=== PATIENT | male | born 2000 | race African-American/Black ===

== ENCOUNTER 2020-10-09 04:51 | Emergency (ER) | payer OTHER, SELFPAY ==
[2020-10-09 04:53] VITALS: BP 140/85; PULSE 117; RESP 97; TEMP 36.4; O2SAT 97; BMI 25.0
[2020-10-09 04:58] VITALS: BP 135/87; PULSE 107; RESP 16; TEMP 37.6; O2SAT 97
[2020-10-09] MEDS: Ketorolac 30 MG/ML Syringe IM (05:31)
--- NOTE | 2020-10-09 05:43 | EX.ED.DYSGE1 ---
HPI History of Present Illness Chief Complaint: General Illness Informant: patient Onset/Context/Timing Onset: Days (3-4) Context: Gradual Onset Timing: Continuous and Waxes and wanes Quality: achy Location: head, all over Current Severity: Moderate Maximum Severity: Moderate Worsened by: nothing Relieved by: nothing. tried no meds. Associated Symptoms Associated Symptoms: cough, diarrhea, myalgias, fevers/chills Narrative Narrative: Patient has not been vaccinated against Covid. He has healthy 20-year-old. No known contact with anyone with Covid that he knows of. He was seen at urgent care yesterday and had a PCR Covid test, it is not back yet, he presents here at 4 AM because of persistent headache although he has not taken anything for it, and because urgent care told him to come to the ER for the headache. PFSH PFSH no medical history Home Medications NK 10/09/20 [History Last Taken Unknown] Allergy/AdvReac Type Severity Reaction Status Date / Time No Known Allergies Allergy Verified 10/09/20 04:52 no surgical history Social History Smoking Status: Current every day smoker tobacco type: e-cigarettes ROS ROS ED Constitutional Constitutional ED: Reports as per HPI, body ache(s), chills, fever(s) and malaise Eyes Eyes: Denies change in vision or diplopia ENT ENT ED: Denies loss taste/smell, rhinorrhea or sore throat Cardiovascular Cardiovascular: Denies chest pain or palpitations Respiratory/Chest Respiratory/Chest: Reports cough; Denies dyspnea Gastrointestinal Gastrointestinal: Reports diarrhea; Denies abdominal pain, nausea or vomiting Genitourinary Genitourinary ED: Denies dysuria or hematuria Musculoskeletal Musculoskeletal: Reports myalgias; Denies back pain or neck pain Integumentary Denies abscess or rash Neurologic Neurologic: Reports headache(s); Denies paresthesias or weakness Psychiatric Psychiatric: Denies anxiety or suicidal thoughts EXAM Physical Exam Const Vital Signs: 10/09/20 04:53 10/09/20 04:58 10/09/20 04:59 Temperature 97.5 F L 99.7 F H Temperature Source Temporal Oral Pulse Rate 117 H 107 H Respiratory Rate 97 H 16 Respiratory Effort Normal Respiratory Pattern Normal Blood Pressure 140/85 H 135/87 H Blood Pressure Mean 103 103 Pulse Ox 97 97 Oxygen Delivery Method Room Air Room Air Positive well nourished and well developed Constitutional Narrative: Well-appearing. Conversive in full sentences. General Appearance ED: well developed and NAD HEENT Reports moist mucous membranes normocephalic and atraumatic Eyes PERRL and EOMs intact bilaterally Neck full ROM, no lymphadenopathy and supple Resp normal respiratory effort and clear to auscultation bilaterally Cardio regular rate, regular rhythm and no murmurs Cardio Narrative: Mild resting tachycardia GI non-tender and non-distended Auscultation: normoactive bowel sounds Palpation: soft Back/Spine no CVA tenderness General Back: other FROM Extremity normal to inspection General Extremety ED: Negative for edema, pulses abnormal or tenderness General Extremity: Negative for edema or pulses abnormal Neuro oriented x3, CN's II-XII intact bilaterally and no sensory deficits noted Sensorium / Orientation: awake and alert Motor Exam: strength 5/5 throughout Skin no rashes or lesions noted and no wounds MDM MDM MDM Narrative Medical decision making narrative: Patient has a low-grade fever at the time he has mild tachycardia here which is probably related to it. I offered to do a rapid Covid for him here so that he knows if it returns positive, he initially wanted it, but then refused, but was amenable to a shot of Toradol for his symptoms. I advised him to isolate as if he has Covid, given that we have seen high incidence recently of nonvaccinated people. He is not hypoxic and meets no criteria for outpatient monoclonal antibody infusion. Discharge Plan Triage Chief Complaint: General Illness ED Provider: Jaime Tran Dx/Rx/DC Orders Clinical Impression: Suspected COVID-19 virus infection Instructions: Coronavirus Disease 2019 (COVID-19): Caring for Yourself or Others Prescriptions: No Action NK RF: 0 Primary Care Provider: Care Physician,No Primary Referrals: Effie Sabillon [NON-STAFF] - As Needed Care Physician,No Primary [Primary Care Provider] - Activity Restrictions/Additional Instructions: Isolate yourself away from others for at least 10 days after the beginning of your fevesr Disposition Disposition: Home, Self Care
== END 2020-10-09 05:49 | disposition home or self-care (01) ==
PROVIDERS: Emergency Provider Emergency Medicine
DX: R51.9 Headache, unspecified (principal); R50.9 Fever, unspecified; R00.0 Tachycardia, unspecified; F17.290 Nicotine dependence, other tobacco product, uncomplicated
CPT/HCPCS: 96372; 99282

== ENCOUNTER 2020-10-09 20:14 | Emergency (ER) | payer OTHER, SELFPAY ==
[2020-10-09 04:53] VITALS: BMI 25.0
[2020-10-09 20:14] VITALS: BP 120/71; PULSE 98; RESP 18; TEMP 37.2; O2SAT 96; BMI 26.4
--- NOTE | 2020-10-09 21:06 | EDS_ITS ---
HPI History of Present Illness Chief Complaint: Headache Informant: patient and spouse/S.O. Narrative Narrative: 20-year-old male presents the emergency room with 4 days of fever, headache, neck pain, cough, sore throat, diarrhea, nausea and vomiting, myalgias, and rhinorrhea. His significant other states that she was ill a few days before him and had similar symptoms and antibiotic helped her feel better. She tested negative for Covid. Patient states that his Covid test is currently pending that he got from an urgent care. He notes his cough is productive of sputum particularly in the shower. The patient vapes. PFSH PFSH no medical history Home Medications doxycycline monohydrate 100 mg PO BID #20 capsule 10/09/20 [Rx Last Taken Unknown] Allergy/AdvReac Type Severity Reaction Status Date / Time No Known Allergies Allergy Verified 10/09/20 20:14 no surgical history Social History (Updated 10/09/20 @ 21:[address] Teddy Ramirez, DO) Smoking Status: Current every day smoker tobacco type: e-cigarettes substance use type: does not use ROS ROS ED Constitutional Constitutional ED: Denies chills or weight loss Eyes Eyes: Denies change in vision or diplopia ENT ENT ED: Denies ear pain, rhinorrhea or sore throat Cardiovascular Cardiovascular: Denies chest pain, orthopnea, palpitations or racing heartbeat Respiratory/Chest Respiratory/Chest: Denies cough, dyspnea or orthopnea Gastrointestinal Gastrointestinal: Denies abdominal pain, diarrhea, nausea or vomiting Genitourinary Genitourinary ED: Denies dysuria, hematuria or urinary frequency Musculoskeletal Musculoskeletal: Denies arthralgias or myalgias Integumentary Denies abscess or rash Neurologic Neurologic: Denies headache(s) or weakness Psychiatric Psychiatric: Denies anxiety, depression, suicidal ideation or suicidal thoughts Endocrine Endocrinology: Denies polydipsia, polyphagia or polyuria Allergic/Immunologic Allergic/Immunologic ED: Denies mouth swelling, tongue swelling or urticaria EXAM Physical Exam Const Vital Signs: 10/09/20 20:14 Temperature 98.9 F Temperature Source Temporal Pulse Rate 98 Respiratory Rate 18 Blood Pressure 120/71 Blood Pressure Mean 87 Pulse Ox 96 Oxygen Delivery Method Room Air Positive well nourished and well developed General Appearance ED: well developed HEENT Reports normocephalic, head/scalp atraumatic and moist mucous membranes Eyes PERRL and EOMs intact bilaterally Neck no lymphadenopathy, supple and no JVD Resp normal respiratory effort Auscultation: rhonchi Cardio regular rate, regular rhythm and no murmurs GI normal to inspection, nondistended, normoactive bowel sounds and non-tender Palpation: soft Back/Spine no CVA tenderness and normal ROM Extremity normal to inspection General Extremety ED: Negative for edema General Extremity: Negative for edema Neuro oriented x3 and CN's II-XII intact bilaterally Sensorium / Orientation: alert Motor Exam: strength 5/5 throughout Psych mental status grossly normal Mood & Affect: Negative for depressed or tearful Skin no rashes or lesions noted and no wounds MDM MDM MDM Narrative Medical decision making narrative: Patient has a leukocytosis. My termination of the chest x-ray is left-sided infiltrate and right-sided infiltrate. Patient received Toradol and IV fluids and feels better. His Covid test was negative. I am going to start him on doxycycline as well as albuterol MDI. I would recommend returning if worsening or concerns. Lab Data Attestation: I reviewed the patient's lab results. Labs: Laboratory Results - last 24 hr 10/09/20 10/09/20 21:14 21:14 WBC 14.5 H RBC 5.04 Hgb 13.4 Hct 42.7 MCV 84.7 MCH 26.6 L MCHC 31.4 L RDW Std Deviation 40.1 RDW Coeff of [place] 13.0 Plt Count 233 MPV 10.5 Immature Gran % (Auto) 0.800 Neut % (Auto) 75.6 H Lymph % (Auto) 13.0 L [place] % (Auto) 10.2 H Eos % (Auto) 0.3 Baso % (Auto) 0.1 Absolute Neuts (auto) 10.9 H Absolute Lymphs (auto) 1.88 Nucleated RBC % 0 Sodium 139 Potassium 3.8 Chloride 106 Carbon Dioxide 29.0 Anion Gap 4 L BUN 7 Creatinine 0.96 Estim Creat Clear Calc 132.48 Est GFR (MDRD) Af Amer 126 Est GFR (MDRD) Non-Af 104 BUN/Creatinine Ratio 7.3 L Glucose 108 H Calcium 8.6 Total Bilirubin 0.30 AST 14 L ALT 37 Alkaline Phosphatase 68 Total Protein 7.4 Albumin 3.5 Globulin 3.9 Albumin/Globulin Ratio 0.9 Radiography Diagnostic Testing: Radiology Impression Chest X-Ray 10/09/20 21:18 IMPRESSION: Left lower lobe and right upper lobe pneumonia. Consider possible aspiration. Electronically Signed: Reno Pardo DO at 22:12 EDT Tel , Service support , Discharge Plan Triage Chief Complaint: Headache ED Provider: Teddy Ramirez Dx/Rx/DC Orders Clinical Impression: Pneumonia Instructions: ED Pneumonia (Adult) Prescriptions: New doxycycline monohydrate 100 MG capsule 100 mg PO BID Qty: 20 RF: 0 Primary Care Provider: Care Physician,No Primary Referrals: Effie Sabillon [NON-STAFF] - As Needed Care Physician,No Primary [Primary Care Provider] - Activity Restrictions/Additional Instructions: The albuterol is 2 to 3 puffs every 3 hours while awake. Tylenol 1000 mg every 4- hours or Motrin 800 mg every 6-8 hours for fever. Disposition Disposition: Home, Self Care
[2020-10-09] MEDS: Ketorolac 30 MG/ML Syringe IV (21:17)
[2020-10-09] MEDS: 0.9% Normal Saline 1,000 ML 1000 ML IV (21:17)
--- NOTE | 2020-10-09 21:18 | RAD_ITS ---
INDICATION: cough and fever EXAMINATION/TECHNIQUE: X-RAY - XR Chest 1 View COMPARISON: None. FINDINGS: LINES/DEVICES: None. LUNGS: Left lower lobe pneumonia and right upper lobe pneumonia both evidenced by alveolar opacification, mild, without air bronchograms. No associated pleural effusion. MEDIASTINUM AND CARDIOVASCULAR STRUCTURES: Cardiac silhouette not enlarged. Central airways and mediastinal contour are unremarkable. BONES AND SOFT TISSUES: Unremarkable. RAD/Chest 1 View (Portable) IMPRESSION: Left lower lobe and right upper lobe pneumonia. Consider possible aspiration. Electronically Signed: Reno Pardo DO at 22:12 EDT Tel , Service support ,
[2020-10-09 21:25] LABS: Absolute Lymphocyte Count 1.88 X10^3/uL (0.83-4.51); Absolute Neutrophil Count 10.9 X10^3/uL (2.0-7.7); Basophil# 0.02 X10^3/uL; Basophil% 0.1 % (0-1); Eosinophil# 0.05 X10^3/uL; Eosinophils% 0.3 % (0-5); Hematocrit 42.7 % (40-54); Hemoglobin 13.4 g/dL (13.0-16.5); Lymphocyte # 1.88 X10^3/ul (0.83-4.51); Mean Corp Hgb Conc 31.4 g/dL (32-36); Mean Corpuscular Hgb 26.6 pg (27.0-32.0); Mean Corpuscular Volume 84.7 fL (80-94); Mean Platelet Vol. 10.5 fl (6.2-12.0); Monocyte# 1.47 X10^3/uL; Monocyte% 10.2 % (0-10); NRBC Flagged by Analyzer 0 % (0-5); Neutrophil # 10.93 X10^3/uL (2.7-7.7); Neutrophil % 75.6 % (47-70); Platelet Count 233 K/mm3 (150-450); RBC Distribution Width SD 40.1 fl (35.1-43.9); Red Blood Count 5.04 M/mm3 (4.6-6.2); White Blood Count 14.5 K/mm3 (4.4-11.0)
[2020-10-09 21:47] LABS: ALB/GLOB Ratio 0.9 RATIO (0.9-2.4); AST(SGOT) 14 U/L (15-37); Alanine Aminotransfer ALT/SGPT 37 U/L (16-61); Albumin, Serum 3.5 g/dL (3.2-5.0); Alkaline Phosphatase 68 U/L (45-117); Anion Gap 4 (5-15); BUN 7 mg/dL (7-18); BUN/Creat Ratio 7.3 RATIO (10-20); Calcium,Total 8.6 mg/dL (8.5-10.1); Chloride 106 mmol/L (98-107); Creatinine, Serum 0.96 mg/dL (0.70-1.30); EST Glomerular Filtration Rate 104 mL/min (>60); Est Glom Filt Rate - Afr Amer 126 mL/min (>60); Estimated Creatinine Clearance 132.48 ml/min; Globulin 3.9 g/dL (2.2-4.2); Glucose 108 mg/dL (74-106); Potassium 3.8 mmol/L (3.5-5.1); Protein, Total 7.4 g/dL (6.4-8.2); Sodium Level 139 mmol/L (136-145)
[2020-10-09] MEDS: INHALER, ASSIST DEVICES 1 EACH SPACER INHALATION (22:57)
== END 2020-10-09 22:58 | disposition home or self-care (01) ==
PROVIDERS: Emergency Provider Emergency Medicine
DX: J18.9 Pneumonia, unspecified organism (principal); F17.290 Nicotine dependence, other tobacco product, uncomplicated
CPT/HCPCS: 71045; 80053; 85025; 87426; 87804; 94640; 96361; 96372; 96374; 99282; J7030; A4216